=== PATIENT | male | born 1980 | race Two or more races ===

== ENCOUNTER 2017-01-05 18:16 | Emergency (ER) | payer SELFPAY ==
[~2017-01-05] VITALS: Ht 175.3 cm; Wt 81.6 kg
[2017-01-05 18:35] VITALS: BP 128/87
== END 2017-01-05 20:21 | disposition left against medical advice (07) ==
LOC: ER 18:22
DX: S61.212A Laceration without foreign body of right middle finger without damage to nail, initial encounter (principal); Z53.21 Procedure and treatment not carried out due to patient leaving prior to being seen by health care provider; W45.8XXA Other foreign body or object entering through skin, initial encounter; Y93.89 Activity, other specified; Y92.89 Other specified places as the place of occurrence of the external cause; Y99.8 Other external cause status